=== PATIENT | male | born 1950 | race Caucasian/White ===

== ENCOUNTER 2017-03-28 18:54 | Emergency (ER) | payer BC, MEDICARE ==
[~2017-03-28] VITALS: Ht 175.3 cm; Wt 113.4 kg
[2017-03-28] MEDS ORDERED: ASPI-612 PO (19:19)
[2017-03-28] MEDS ORDERED: ALLO100T PO (19:19)
[2017-03-28] MEDS ORDERED: PRAV40TA3 PO (19:20)
[2017-03-28] MEDS ORDERED: LOSA100T15 PO (19:20)
[2017-03-28] MEDS ORDERED: METF750T2 PO (19:21)
[2017-03-28] MEDS ORDERED: RANI300T7 PO (19:21)
--- NOTE | 2017-03-28 19:22 | NUR ---
Pt to room, awaiting MD botello.
[2017-03-28] MEDS ORDERED: LIDOCAINE HCL 1% 20 ML VIAL IJ ONE (19:30)
[2017-03-28] MEDS ORDERED: TDAP DIPH,PERTUSS,TET VAC/PF 0.5 ML DISP.SYRIN IM ONE ×2 (19:45→19:57)
--- NOTE | 2017-03-28 19:54 | NUR ---
Pt seen by MD. Lacerations cleaned and steri strips applied. Finger splints applied, pos CMS s/p application. Pt stable for discharge per MD. Pt given ACI. Pt verbalized understanding of dc instructions. Pt ambulated out of er with steady gait.
[2017-03-28 19:56] VITALS: BP 162/95
== END 2017-03-28 19:56 | disposition home or self-care (01) ==
LOC: ER 18:54
DX: S61.231A Puncture wound without foreign body of left index finger without damage to nail, initial encounter (principal); S61.213A Laceration without foreign body of left middle finger without damage to nail, initial encounter; I10 Essential (primary) hypertension; E11.9 Type 2 diabetes mellitus without complications; M10.9 Gout, unspecified; Z87.442 Personal history of urinary calculi; W26.0XXA Contact with knife, initial encounter; Y93.89 Activity, other specified; Y92.9 Unspecified place or not applicable; Y99.9 Unspecified external cause status
CPT/HCPCS: 90715; A4217; A4663; J3490